=== PATIENT | female | born 1930 | race Caucasian/White ===

== ENCOUNTER 2017-02-09 06:03 | Inpatient (IN) ==
--- NOTE | 2017-02-08 11:04 | Discharge Summary ---
<Luda Corcoran E - Last Filed: 02/11/17 18:26> Date of Encounter: 02/11/17 - Discharge Diagnosis (1) Arthritis of right knee Priority: Primary Status: Acute (2) Chronic pain Priority: Secondary (Patient to hold chronic pain med (Tramadol) while taking post-op pain med (Oxycodone).) Status: Acute Qualifiers: Chronic pain type: other chronic pain Qualified Code(s): G89.29 - Other chronic pain (3) AAA (abdominal aortic aneurysm) Priority: Secondary Status: Acute Qualifiers: Presence of rupture: without rupture Qualified Code(s): I71.4 - Abdominal aortic aneurysm, without rupture (4) Hypertension Priority: Secondary Status: Acute Qualifiers: Hypertension type: essential hypertension Qualified Code(s): I10 - Essential (primary) hypertension (5) Status cardiac pacemaker Priority: Secondary Status: Acute - Discharge Medications Home Medications: OxyCODONE Immed Rel [Roxicodone 5 MG] 5 - 10 mg PO Q6HR PRN #40 tablet 02/08/17 [Rx] Acetaminophen [Tylenol] 1,000 mg PO Q6HR PRN 02/09/17 [History] Aspirin Enteric Coated [Aspirin EC] 325 mg PO BID #30 tablet.dr 02/09/17 [Rx] Cyanocobalamin (Vitamin B-12) [Vitamin B-12] 2,000 mcg PO DAILY 02/09/17 [ History] Ergocalciferol (VITAMIN D2) [Vitamin D2] 50,000 unit PO Q2W 02/09/17 [History] Lisinopril [Zestril] 10 mg PO DAILY 02/09/17 [History] Mirtazapine [Remeron] 15 mg PO HS 02/09/17 [History] Tramadol HCl [Ultram] 50 mg PO BID 02/09/17 [History] Tramadol HCl [Ultram] 50 mg PO Q6H PRN 02/09/17 [History] Allergies/Adverse Reactions: Allergies No Known Allergies Allergy (Verified 02/09/17 07:29) Primary care physician: Chika Ibrahim - Patient Status Disposition: Transfer Inpatient Rehab Fac Condition: Good - Discharge Instructions Follow Up With: Chika Ibrahim MD [Primary Care Provider] - Additional Instructions: Discharge Instructions: Total Knee Replacement Please call [facility] ([phone]), your Primary Care Physician, or report to the Emergency Room if you have any of the following symptoms: Nausea, vomiting, fever greater that 101.5, swelling, chest pain, shortness of breath, increased pain/redness/drainage/odor for your incision site, numbness/ tingling, or any other concerning symptoms. ACTIVITY:Weight-bearing as tolerated. You may progress off support (crutches or walker) as tolerated. MEDICATIONS: Upon discharge resume your home medications. Take all the medications as prescribed. Take a stool softener if taking narcotic pain medications. Stool softeners are only effective if you drink enough fluids. Drink 6-8 glass of water or fluids a day, unless this is not allowed for another health problem. Despite using stool softeners, if you haven't had a bowel movement in 3 days, please switch to a gentle laxative. Gentle laxatives are sold over the counter. You should have a bowel movement within 24 hours, if not call the office. You will be discharged from the hospital with a prescription for pain medication. You are encouraged to decrease the use of narcotic pain medication as tolerated. Should you require a refill, please call the office. [facility] prescribes narcotic pain medication for only 4-6 weeks after surgery. If you require pain medication beyond this time period, you may be referred to your Primary Care Physician or to the Pain Clinic for further evaluation. Plan ahead for refills on pain medication as many narcotics either need to be picked up at the office or mailed. It is best to call 48-72 hours in advance of needing a prescription refill so you don't run out of medication. To help control the post-operative pain, you may take NSAIDs (Aleve,Advil, Motrin, Ibuprofen, Naprosyn) or Tylenol as prescribed on the bottle in addition to the pain medication. ANTICOAGULATION (blood thinners): Continue your Aspirin, Lovenox or Coumadin as prescribed to help prevent a blood clot in the leg or in the lungs. As long as your incision remains dry and you tolerate the NSAIDs (Aleve, Advil, Motrin, ibuprofen, naprosyn), it is OK to use the NSAIDS while you are taking your anticoagulation medication. Should your incision start to drain, stop the NSAID and contact our office. Common symptoms of blood clot in the legs include: localized pain, swelling, calf tenderness, redness or discoloration of the skin. Blood clot in the lung symptoms include: shortness of breath, rapid pulse, sweating, and chest pain that worsens with deep breathing, coughing up blood, lightheadedness, feelings of anxiety. If you experience any of these symptoms notify your physician immediately, go to the emergency room, or if having trouble breathing, call 911. WOUND CARE: Leave the dressing on for 7 to 10days. You may change the dressing if it becomes saturated greater than 50%. Do not get the dressing wet at anytime. Wash your hands with antibacterial soap, rinse and dry prior to any wound care. If you have france the visiting nurse or rehab facility can remove the stapes 10-14 days after surgery and place steri-strips across the wound. Leave the steri-strips in place until they fall off on their won. You may let water from the shower run on top of the steri-strips. If you do not have a visiting nurse or rehab facility, you will need to return to the office at 10-14 days for the france to be removed. If you have itching or redness around the dressing call the office. FOLLOW-UP: Please follow up with your surgeon in the orthopedic clinic in 4 weeks from the day of surgery. If you have france that need to be removed, you will need to come back to the office in 10-14 days from the day of surgery. - Hospital Course Hospital course: Ms. Garcia is a 86 year old female - Time Spent with Patient Total time spent providing and/or coordinating discharge services: <Diogenes Keita - Last Filed: 02/13/17 07:01> Date of Encounter: 02/13/17 Time of Encounter: 07:00 - Discharge Diagnosis (1) Arthritis of right knee Priority: Primary Status: Acute (2) Chronic pain Priority: Secondary Status: Acute Qualifiers: Chronic pain type: other chronic pain Qualified Code(s): G89.29 - Other chronic pain (3) AAA (abdominal aortic aneurysm) Priority: Secondary Status: Acute Qualifiers: Presence of rupture: without rupture Qualified Code(s): I71.4 - Abdominal aortic aneurysm, without rupture (4) Hypertension Priority: Secondary Status: Acute Qualifiers: Hypertension type: essential hypertension Qualified Code(s): I10 - Essential (primary) hypertension (5) Status cardiac pacemaker Priority: Secondary Status: Acute Primary care physician: Chika Ibrahim - Patient Status Functional capacity at discharge: uses cane/walker Overall status at discharge: patient is progressing back to baseline - Hospital Course Hospital course: Ms. Garcia is a 86 year old female uneventful postop course DC to [facility] for dvt prophylaxsis - Time Spent with Patient Total time spent providing and/or coordinating discharge services:
[2017-02-09] MEDS ORDERED: Lidocaine -MPF 1% 2 ML VIAL ID ONE (06:24)
[2017-02-09] MEDS ORDERED: CeFAZolin Pre 2,000 MG/100 ML 2,000 MG/100 ML BAG IVPB ONE (06:24)
[2017-02-09] MEDS ORDERED: Ringers Solution, Lactated 1,000 ML IVC SCH ×3 (06:30→10:24)
--- NOTE | 2017-02-09 06:53 | History & Physical Report ---
Date of Encounter: 02/09/17 Time of Encounter: 06:53 24 Hour HP Update - Instructions Instructions: If the History and Physical is less than 30 days old and was completed prior to A.M. admission and or procedure and has NOT been updated on calendar day of procedure please complete this update prior to performing procedure. - Update Patient reports changes in Medical Condition: No Changes in examination, assessment, or condition: No Changes in Medication: No Preop tests/diagnostics Reviewed: Yes Surgery Remains Indicated: Yes Consent for Planned Operative Procedure(s) Verified: Yes - Pre-Operative Checklist Preoperative Checklist Indicated: No Prophylactic Antibiotic Ordered: Yes Is VTE Prophylaxis Indicated?: Yes
[2017-02-09] MEDS ORDERED: ROPIVACAINE HCL/PF 0.5% 30 ML VIAL ONE (06:54)
[2017-02-09] MEDS ORDERED: Bupivacaine/Clonidine Syringe 1 EACH SYRINGE ONE (06:56)
--- NOTE | 2017-02-09 07:06 | Anesthesia Evaluation PreOp ---
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 (early dementia) Other Medical History: Denies Any Significant HX Anesthesia History: No Prior Anesthetic Complications, Past Anesthesia Alcohol Use: none Drug use: none Medications and Allergies OxyCODONE Immed Rel [Roxicodone 5 MG] 5 - 10 mg PO Q6HR PRN #40 tablet 02/08/17 [Rx] Allergies No Known Allergies Allergy (Unverified 01/26/17 11:16) - Meds/Allergy Pre-op Review Medications Reviewed: Yes Allergies Reviewed: Yes Beta Blockers on Current Med List: No Anesthesia Results - Labs Laboratory Tests 01/26/17 01/26/17 01/26/17 11:30 11:30 11:30 WBC 6.6 Hgb 13.7 Hct 43.2 Plt Count 157 PT 11.3 INR 1.0 APTT 28.2 Sodium 139 Potassium 3.8 BUN 19 Creatinine 0.87 - Imaging EKG: report reviewed (01/26/2017 electronic atrial pacemaker, borderline LAD, IRBBB, modrate voltage criteria for LVH) Additional studies: 03/17/2011 Echo Conclusion: 1. LVEF 65+% 2. There are no segmental wall motion abnormalities. 3. Mild basal septal hypertrophy 4. The pulse/tissue Doppler pattern is suggestive of impaired relaxation indicating possible diastolic dysfunction grade 1. 5. The left atrium is mildly dilated. 6. There is trace mitral regurgitation. 7. There is trivial tricuspid regurgitation. 8. The RVSP is normal. 9. There is mild pulmonic regurgitation. 10. Possible but not definite interatrial septal aneurysm;consider saline contrast bubble study to exclude shunt 11. There is possibly an interatrial septal aneurysm, consider saline contrast exam. 12. No evidence of mitral valve prolapse. 13. No segmental wall motion abnormalities noted. 14. There is no pulmonary hypertension noted. 15. An intra atrial septal aneurysm is an incidental finding which is a mobile, thinned septum between the atria frequently associated with PFO or ASD. Saline contrast study is suggested. 03/29/2011 Echo Conclusion: 1. Saline contrast bubble study was negative for shunt. Anesthesia Exam O2 Sat Height 1.52 m Height 1.52 m Height 1.52 m Weight 56.699 kg Weight 56.699 kg Weight 56.699 kg O2 Sat by Pulse Oximetry 94 Vital Signs Temp Pulse Resp BP Pulse Ox 97.9 F 73 18 164/75 94 02/09/17 06:30 02/09/17 06:30 02/09/17 06:30 02/09/17 06:30 02/09/17 06:30 Height: 5' Weight: 125 lbs NPO (# of Hours): 8 Pain Scale: 0 Pain Scale Used: Numeric (1 - 10) - HEENT Pupil (Motor): EOMI Mallampati: II Teeth: Edentulous Denture Type: Upper: Complete, Lower: Complete Oral Opening: Greater than 3 - ELECTRIC MOTOR ANALYST LOC: Oriented ELECTRIC MOTOR ANALYST Motor: Normal RUE, Normal LUE, Normal RLE, Normal LLE, Normal Face ELECTRIC MOTOR ANALYST Sensory: Normal: RUE, LUE, RLE, LLE, Face - Cardiac Rhythm: Regular Murmur: None - Pulmonary Breath Sounds: bilateral Clear Respiratory Effort: Symmetrical Anesthesia Assess/Plan ASA Score: 3 Modified Karla Scale for Level of Consciousness: Cooperative, oriented, and tranquil Anesthetic Plan: General, Regional Monitoring Plan: Standard Monitors Recovery Plan: PACU
[2017-02-09] MEDS ORDERED: Ondansetron 4 MG/2 ML VIAL ONE (07:10)
[2017-02-09] MEDS ORDERED: *HR* FentaNYL (PF) 100 MCG/2 ML VIAL ONE (07:10)
[2017-02-09] MEDS ORDERED: *HR* Midazolam HCl 2 MG/2 ML VIAL ONE (07:10)
[2017-02-09] MEDS ORDERED: Dexamethasone 4 MG/ML VIAL ONE (07:10)
[2017-02-09] MEDS ORDERED: Lidocaine -MPF 2% 2 ML VIAL ONE (07:10)
[2017-02-09] MEDS ORDERED: *HR* Propofol 200 MG/20 ML VIAL IVP ONE (07:11)
[2017-02-09] MEDS ORDERED: Ondansetron 4 MG/2 ML VIAL IVP ONE (08:02)
[2017-02-09] MEDS ORDERED: *HR* Labetalol 100 MG/20 ML MDV IVP PRN (08:02)
--- NOTE | 2017-02-09 08:07 | Anesthesia Procedures ---
Date of Encounter: 02/09/17 Time of Encounter: 07:30 Procedures: Anesthesia - Nerve Block Procedure Date: 02/09/17 Time: 07:30 Allergies/Adv Reactions: NKA Pre-op Diagnosis: Right knee OA Surgical Procedure: Right total knee arthroplasty Checklist: Correct Patient Identifier, Correct procedure, History checked Correct side: Right Blood Thinner: No Monitor Applied: EKG, BP, Pulse Oximetry Supplemental Oxygen via Nasal Cannula (L/min): 2 Sedation: Versed (mg): 1 Sedation: Fentanyl (mcg): 50 Indication: Post Op Analgesia Pre-op Neuro Deficits: No Block Type: Femoral, Other (IPAC) Catheter placed: No Sterile Technique: Yes Ultrasound used: Yes Anatomy identified: Yes Visual spread of Local: Yes Neuro Stimulation: Yes Nerve Stimulator Range: 0.2 - 0.4 mA Blood on Needle Aspiration: No Smooth Injection of Local: Yes Pain with Injection of Local: No Prep: Chlorhexadine Needle: 22 x 50 mm Stimuplex Local: 0.25% Bupivicaine w/Clonidine 20 mcg/cc (For IPAC 20ml), Ropivacaine (0.5 % 30ml femoral), Other (Decadron 8mg) Volume (cc): 50 total Number of Attempts: 1 Complications: None/effective block Vitals: Vital Signs Temperature 97.9 F 02/09/17 06:30 Pulse Rate 73 02/09/17 06:30 Respiratory Rate 18 02/09/17 06:30 Blood Pressure 164/75 02/09/17 06:30 O2 Sat by Pulse Oximetry 94 02/09/17 06:30 Temperature 97.9 F 02/09/17 06:30 Pulse Rate 72 02/09/17 07:40 Respiratory Rate 18 02/09/17 06:30 Blood Pressure 123/52 02/09/17 07:40 O2 Sat by Pulse Oximetry 99 02/09/17 07:40
--- NOTE | 2017-02-09 08:53 | Orthopedic Operative Note ---
Date of procedure: 02/09/17 Pre-op diagnosis: Right knee arthritis Post-op diagnosis: same Procedure: Procedure: Right Total knee replacement Estimated blood loss: 200 cc Hardware: Arthrex Femur: 5 Tibia: 4 PS insert:10 Patella:34 Exam Under anesthesia: Loss of full extension 5 degrees, valgus alingment Procedural Notes: Grade 4 arthritic changes in all 3 compartments. Operative procedure: The patient was brought to the operating room and placed on the operating room table. After general anesthesia was administered the operative knee was examined. Findings were noted in the exam under anesthesia. The operative extremity was prepped and draped in sterile surgical fashion. The patient received IV antibiotics prior to skin incision. A standard midline incision was made centered over the patella. The incision was made through the skin and subcutaneous tissue. A medial parapatellar tendon approach was performed. Care was taken to preserve tissue along the medial aspect of the patella. And to protect the patella tendon. The deep MCL was released off the medial tibia. The infra patella fat pad was excised. Knee was brought into flexion. Patient noted to have grade 4 arthritic changes all 3 compartments. The entry hole was made for the intramedullary femoral guide. The guide was seated in 6 degrees of valgus. Anterior cut was made followed by the distal cut. The ACL the PCL the medial and the lateral menisci were excised. The tibia was subluxed forward. The entry hole was made for the intramedullary tibial guide. Guide was seated to resect 2 mm off the more abnormal side. The knee was brought into flexion the distal femur was sized to a 5. The femoral guide was seated, the anterior cut was made followed by the posterior condylar cut, followed by the chamfer cuts. The finishing guide was seated the box cut was made and the lug holes were drilled. The tibia was sized to a 4, the tibial tray was seated and prepared with the large drill followed by the fin cutter. Trial reduction revealed full extension no varus valgus instability with the appropriate 10 PS Sandra. The patella was everted and cut was made at the level of the insertion of the quadriceps and patella tendon. The patella was sized 34 the guide was seated and the lug holes are drilled. Trial reduction revealed excellent patella tracking. All trial components were removed all bony surfaces were irrigated. The tibia was cemented first followed by the femur. The 10 PS Sandra was seated and the knee was brought into full extension. The patella was cemented and held in place with the patellar holding clamp. After the cement had hardened, the knee sat for 2 minutes with a Betadine saline solution. The knee was then irrigated out with 2 L of pulse irrigation. The extensor mechanism was closed with #2 FiberWire suture and #2 PDS suture. The subcutaneous tissue was then irrigated and closed deep with #1 PDS suture superficially with 0 PDS suture and skin was closed with skin france. The patient was then placed in a sterile dressing and a postoperative brace extubated and transferred to recovery room in stable condition. Anesthesia: TIGRE Surgeon: Diogenes Keita Plant Health Manager: Luda Corcoran Condition: stable Disposition: PACU
[2017-02-09] MEDS: *HR* Morphine 2 MG/ML SYRINGE IVP PRN ×2 (09:01→09:22)
[2017-02-09 09:03] LABS: Hematocrit 35.5 % (35.3-44.9); Hemoglobin 11.2 g/dL (11.5-15.4)
[2017-02-09] MEDS ORDERED: Acetaminophen IV 1,000 MG/100 ML INFUS..BTL IVPB STA ×2 (09:35→09:42)
--- NOTE | 2017-02-09 09:38 | Anesthesia Evaluation Post Op ---
Date of Encounter: 02/09/17 Time of Encounter: 09:36 - Vital Signs Vital Signs: Vital Signs/O2 Sat/Glucose, Most Current Temp Pulse Resp BP Pulse Ox 02/09/17 09:23 68 16 112/52 97 02/09/17 09:13 97.3 F L 79 14 91/51 98 02/09/17 09:03 64 14 93/45 96 02/09/17 08:53 72 16 108/59 96 02/09/17 08:43 97.3 F L 77 16 117/56 100 02/09/17 07:40 72 123/52 99 02/09/17 07:25 70 114/71 100 02/09/17 06:30 97.9 F 73 18 164/75 94 - Lungs Lungs: Clear Ascult./Percussion - Airway Airway: Non-obstructed - Cardiovascular Regular Rate - Mental Status Mental Status: Alert & Oriented, Answers Appropriately - Pain Pain Scale: 5 (OFirmev ordered) Pain Scale used: Numeric (1 - 10) - Nausea Vomiting Nausea Vomiting: Present - Hydration Hydration: Tolerates oral liquids, Able to void - Discharge PostOp Status: Transfer Patient to floor Anes Supervising Prov Stmt: Pt seen/evaluated, VS and pt has met criteria for discharge to floor. - MD Danilo
[2017-02-09] MEDS ORDERED: Temazepam 15 MG CAPSULE PO PRN (10:24)
[2017-02-09] MEDS ORDERED: Sennosides 8.6 MG TABLET PO PRN (10:24)
[2017-02-09] MEDS ORDERED: traMADol 50 MG TABLET PO PRN (10:24)
[2017-02-09] MEDS ORDERED: *HR* OxyCODONE Immed Rel 5 MG TABLET PO PRN (10:24)
[2017-02-09] MEDS ORDERED: Ondansetron 4 MG/2 ML VIAL IVP PRN (10:24)
[2017-02-09] MEDS ORDERED: MOM Conc 10 ML UD.LIQ PO PRN (10:24)
[2017-02-09] MEDS ORDERED: Naloxone 0.4 MG/ML INJ IVP PRN (10:24)
[2017-02-09] MEDS: traMADol 50 MG TABLET PO SCH ×2 (11:00→20:58)
[2017-02-09] MEDS: Cyanocobalamin (B-12) 1,000 MCG TABLET PO SCH (11:05)
[2017-02-09] MEDS: *HR* HYDROmorphone (PF) 1 MG/ML SYRINGE IVP PRN (12:03)
[2017-02-09] MEDS: ceFAZolin 2,000 MG in D5% in Water 100 ML IVPB SCH ×2 (16:18→23:37)
[2017-02-09] MEDS: *HR* Enoxaparin 30 MG/0.3 ML SYRINGE SQ SCH (17:42)
[2017-02-09] MEDS ORDERED: *HR* Enoxaparin 30 MG/0.3 ML SYRINGE SQ SCH (18:00)
[2017-02-09] MEDS: Mirtazapine 15 MG TABLET PO SCH (20:59)
[2017-02-10] MEDS: *HR* Enoxaparin 30 MG/0.3 ML SYRINGE SQ SCH ×2 (06:12→17:58)
[2017-02-10 07:00] LABS: BUN/Creatinine Ratio 22 (6-26); Blood Urea Nitrogen 19 mg/dL (7-20); Carbon Dioxide 25 mEq/L (19-29); Chloride 103 mEq/L (98-109); Glucose 117 mg/dL (70-99); Osmolality,Calculated 293 (280-300); Potassium 4.7 mEq/L (3.5-4.5); Sodium 140 mEq/L (136-145); eGFR For African Americans > 60 (> 60); eGFR For Non-African Americans > 60 (> 60)
[2017-02-10 07:14] LABS: Hematocrit 31.2 % (35.3-44.9)
[2017-02-10 07:37] LABS: Hemoglobin 9.5 g/dL (11.5-15.4)
--- NOTE | 2017-02-10 07:46 | Orthopedics Progress Note ---
Date of Encounter: 02/10/17 Time of Encounter: 07:45 - Assessment and Plan (1) Arthritis of right knee Current Visit: Yes Status: Acute (2) Chronic pain Current Visit: Yes Status: Acute Qualifiers: Chronic pain type: other chronic pain Qualified Code(s): G89.29 - Other chronic pain (3) AAA (abdominal aortic aneurysm) Current Visit: Yes Status: Acute Qualifiers: Presence of rupture: without rupture Qualified Code(s): I71.4 - Abdominal aortic aneurysm, without rupture (4) Hypertension Current Visit: Yes Status: Acute Qualifiers: Hypertension type: essential hypertension Qualified Code(s): I10 - Essential (primary) hypertension (5) Status cardiac pacemaker Current Visit: Yes Status: Acute Subjective Interval history: Patient was seen this morning doing well without complaints. Afebrile vital signs stable. Operative extremity: Neurovascularly intact Dressing clean dry and intact Calves nontender Assessment and plan: Continue with postoperative care Hematocrit 31 Objective Vital signs: Vital Signs Temp Pulse Resp BP Pulse Ox 02/10/17 06:39 98.5 F 761 8 154/73 97 02/10/17 04:00 98.3 F 80 18 161/71 98 02/10/17 00:00 98.1 F 71 18 131/69 95 02/09/17 20:00 97.7 F 91 17 111/69 93 02/09/17 15:58 98.1 F 83 16 104/64 94 02/09/17 13:38 97.9 F 82 14 107/69 95 02/09/17 12:10 97.5 F L 65 14 133/61 94 02/09/17 11:17 97.5 F L 73 14 129/57 98 02/09/17 10:51 97.6 F 66 14 119/70 94 02/09/17 10:20 97.6 F 67 14 148/59 96 02/09/17 09:53 97.8 F 64 14 148/60 98 02/09/17 09:43 97.8 F 65 16 119/61 99 02/09/17 09:33 97.8 F 68 16 114/50 98 02/09/17 09:23 68 16 112/52 97 02/09/17 09:13 97.3 F L 79 14 91/51 98 02/09/17 09:03 64 14 93/45 96 02/09/17 08:53 72 16 108/59 96 02/09/17 08:43 97.3 F L 77 16 117/56 100 Intake and Output 02/09/17 02/09/17 02/10/17 15:59 23:59 07:59 Intake Total 100 / 100 500 / 500 200 / 200 Output Total 200 / 200 650 / 650 250 / 250 Balance -100 / -100 -150 / -150 -50 / -50 Intake: IV Fluids 100 / 100 100 / 100 Ancef 2,000 MG In 100 / 100 Dextrose 5% 100 ML @ 200 mls/hr IVPB Q8HR JORI Rx#: [id number] Ancef Premix 2,000 MG/100 100 / 100 ML 2,000 mg In 100 ml @ 200 mls/hr IVPB PREOP ONE Rx#:[id number] Oral 400 / 400 200 / 200 Output: Urine 650 / 650 250 / 250 Estimated Blood Loss 200 / 200 Other: # Urine Diapers 1 - Labs CBC & BMP: 02/10/17 05:32 02/10/17 05:32 Labs: Abnormal lab results Hgb 9.5 g/dL (11.5-15.4) L D 02/10/17 05:32 Hct 31.2 % (35.3-44.9) L 02/10/17 05:32 Potassium 4.7 mEq/L (3.5-4.5) H 02/10/17 05:32 Glucose 117 mg/dL (70-99) H 02/10/17 05:32 - VTE Documentation of Mechanical Device: Venous foot pump, device Consult Discharge Plan - Plan Referrals: Chika Ibrahim MD [Primary Care Provider] -
[2017-02-10] MEDS: Cyanocobalamin (B-12) 1,000 MCG TABLET PO SCH (09:26)
[2017-02-10] MEDS: traMADol 50 MG TABLET PO SCH ×2 (09:27→21:05)
[2017-02-10] MEDS: *HR* OxyCODONE Immed Rel 5 MG TABLET PO PRN (17:58)
[2017-02-10] MEDS: Mirtazapine 15 MG TABLET PO SCH (21:05)
[2017-02-11] MEDS: *HR* HYDROmorphone (PF) 1 MG/ML SYRINGE IVP PRN (01:00)
[2017-02-11] MEDS: *HR* Enoxaparin 30 MG/0.3 ML SYRINGE SQ SCH (05:35)
[2017-02-11 06:07] LABS: Hematocrit 28.3 % (35.3-44.9)
[2017-02-11 06:38] LABS: BUN/Creatinine Ratio 25 (6-26); Blood Urea Nitrogen 20 mg/dL (7-20); Calcium 8.8 mg/dL (8.6-10.8); Carbon Dioxide 26 mEq/L (19-29); Chloride 99 mEq/L (98-109); Glucose 132 mg/dL (70-99); Osmolality,Calculated 286 (280-300); Potassium 4.3 mEq/L (3.5-4.5); Sodium 136 mEq/L (136-145); eGFR For African Americans > 60 (> 60); eGFR For Non-African Americans > 60 (> 60)
[2017-02-11 06:50] VITALS: BP 154/78
--- NOTE | 2017-02-11 07:52 | Orthopedics Progress Note ---
Date of Encounter: 02/11/17 Time of Encounter: 07:52 - Assessment and Plan (1) Arthritis of right knee Current Visit: Yes Status: Acute (2) Chronic pain Current Visit: Yes Status: Acute Qualifiers: Chronic pain type: other chronic pain Qualified Code(s): G89.29 - Other chronic pain (3) AAA (abdominal aortic aneurysm) Current Visit: Yes Status: Acute Qualifiers: Presence of rupture: without rupture Qualified Code(s): I71.4 - Abdominal aortic aneurysm, without rupture (4) Hypertension Current Visit: Yes Status: Acute Qualifiers: Hypertension type: essential hypertension Qualified Code(s): I10 - Essential (primary) hypertension (5) Status cardiac pacemaker Current Visit: Yes Status: Acute Subjective Interval history: Patient was seen this morning doing well without complaints. Afebrile vital signs stable. Operative extremity: Neurovascularly intact Dressing clean dry and intact Calves nontender Assessment and plan: Continue with postoperative care Hemoglobin 9.0 Objective Vital signs: Vital Signs Temp Pulse Resp BP Pulse Ox 02/11/17 06:47 98.7 F 110 18 154/78 95 02/11/17 05:09 98.9 F 119 16 151/74 95 02/11/17 00:25 98.2 F 111 17 194/84 94 02/10/17 20:01 98.8 F 110 16 182/73 92 02/10/17 14:21 98.5 F 87 14 158/79 96 02/10/17 10:21 98.2 F 83 16 149/76 95 Intake and Output 02/10/17 02/10/17 02/11/17 15:59 23:59 07:59 Intake Total 350 / 350 Output Total 400 / 400 Balance -50 / -50 Intake: Oral 350 / 350 Output: Urine 400 / 400 Other: # Bowel Movement Diapers 1 - Labs CBC & BMP: 02/11/17 05:22 02/11/17 05:22 Labs: Abnormal lab results Hgb 9.0 g/dL (11.5-15.4) L 02/11/17 05:22 Hct 28.3 % (35.3-44.9) L 02/11/17 05:22 Glucose 132 mg/dL (70-99) H 02/11/17 05:22 - VTE Documentation of Mechanical Device: Venous foot pump, device Consult Discharge Plan - Plan Referrals: Chika Ibrahim MD [Primary Care Provider] -
[2017-02-11] MEDS: Cyanocobalamin (B-12) 1,000 MCG TABLET PO SCH (08:26)
[2017-02-11] MEDS: traMADol 50 MG TABLET PO SCH (08:27)
[2017-02-11] MEDS: *HR* OxyCODONE Immed Rel 5 MG TABLET PO PRN (11:59)
== END 2017-02-11 12:00 | DRG 470 ==
LOC: SAMDAY 06:03 → 3NENU 09:59
PROVIDERS: ADMIT Orthopaedic Surgery; ATTEND Orthopaedic Surgery